=== PATIENT | female | born 1980 | race Caucasian/White ===

== ENCOUNTER → 2024-06-08 09:59 | Outpatient (REF) | payer BC, SELFPAY | LOC: HWEVLT 09:59 | PROVIDERS: ATTENDING PHYSICIAN Radiology Vascular & Interventional Radiology | DX: I83.891 Varicose veins of right lower extremity with other complications (principal) | CPT/HCPCS: 93971 ==

== ENCOUNTER → 2024-08-22 09:39 | Outpatient (REF) | payer BC, SELFPAY | LOC: HWEVLT 09:39 | PROVIDERS: ATTENDING PHYSICIAN Radiology Vascular & Interventional Radiology | DX: I83.891 Varicose veins of right lower extremity with other complications (principal) | CPT/HCPCS: 36478; C1769 ==

== ENCOUNTER → 2024-09-06 11:12 | Outpatient (REF) | payer BC, SELFPAY | LOC: HWEVLT 11:12 | PROVIDERS: ATTENDING PHYSICIAN Radiology Vascular & Interventional Radiology | DX: I83.891 Varicose veins of right lower extremity with other complications (principal) | CPT/HCPCS: 93971 ==